=== PATIENT | male | born 1980 | race Caucasian/White ===

== ENCOUNTER 2021-11-05 13:45 | Emergency (ER) | payer MEDICAID ==
[~2021-11-05] VITALS: Ht 170.2 cm; Wt 95.5 kg
[2021-11-05 13:50] VITALS: BP 137/101
[2021-11-05] MEDS ORDERED: LORazepam 1 MG tablet PO ONE (16:05)
== END 2021-11-05 16:09 | disposition home or self-care (01) ==
LOC: ER 13:46
DX: F17.200 Nicotine dependence, unspecified, uncomplicated (principal); F41.9 Anxiety disorder, unspecified
CPT/HCPCS: 99283